=== PATIENT | female | born 1995 | race Asian ===

== ENCOUNTER 2017-02-22 00:44 | Emergency (ER) | payer SELFPAY ==
[~2017-02-22] VITALS: Ht 165.1 cm; Wt 49.9 kg
[2017-02-22 00:50] VITALS: BP_SYST 108
--- NOTE | 2017-02-22 00:50 | NUR ---
Patient to ER bed 8 to gown for evaluation. Side rails up. Report given to Eleanor RO.
--- NOTE | 2017-02-22 00:55 | NUR ---
Pt is lethargic but arouses to verbal stimuli. Friend at bedside. Pt c/o nausea and vomiting. Denies any pain at this time. No signs of SOB or acute dstress noted. Will continue to monitor.
--- NOTE | 2017-02-22 01:15 | NUR ---
GUSTAVO Novoa MD at bedside examining patient.
[2017-02-22] MEDS ORDERED: ONDANSETRON 4 MG ODT TAB PO ONE (01:30)
[2017-02-22 01:40] VITALS: BP_SYST 97
--- NOTE | 2017-02-22 01:40 | NUR ---
Patient given written and verbal discharge instructions and verbalizes understanding. GUSTAVO Novoa MD discussed with patient the results and treatment provided. Patient in stable condition. ID arm band removed. Patient educated on pain management and to follow up with PMD. Pain Scale 0/10. Opportunity for questions provided and answered.
== END 2017-02-22 01:40 | disposition home or self-care (01) ==
LOC: SED 00:44
DX: F10.129 Alcohol abuse with intoxication, unspecified (principal)
CPT/HCPCS: 99282; Q0162